=== PATIENT | female | born 2000 | race Caucasian/White ===

== ENCOUNTER 2021-04-06 16:52 | Emergency (ER) | payer OTHER ==
[~2021-04-06] VITALS: Ht 157.5 cm; Wt 61.4 kg
[2021-04-06 21:07] VITALS: BP 129/80
== END 2021-04-06 21:52 | disposition home or self-care (01) ==
LOC: EMS 16:54
DX: N75.1 Abscess of Bartholin's gland (principal)
CPT/HCPCS: 99283; Z7502